=== PATIENT | female | born 1970 | race Two or more races ===

== ENCOUNTER 2016-06-02 23:02 | Emergency (ER) | payer OTHER ==
[2016-06-03] MEDS ORDERED: PROCHLORPERAZINE 5 MG/ML 2 ML VIAL ONE (01:25)
[2016-06-03] MEDS ORDERED: KETOROLAC TROMETHAMINE 60 MG/2 ML VIAL ONE (01:25)
== END 2016-06-03 02:36 | disposition home or self-care (01) ==
LOC: ED 23:02
DX: R51 Headache (principal)
CPT/HCPCS: 99282; 96372 ×2; 99283; J0780; J1885